=== PATIENT | male | born 1975 | race Caucasian/White ===

== ENCOUNTER 2017-02-11 02:47 | Emergency (ER) | payer OTHER ==
[2017-02-11] MEDS ORDERED: Aspirin Low Dose CHEW TAB* 81 MG PO ONE ×2 (03:06→03:25)
[2017-02-11 03:13] LABS: Hematocrit 42 % (42-52); Hemoglobin 14.6 g/dl (14.0-18.0); Mean Corpuscular HGB Conc 35 g/dl (31-36); Mean Corpuscular Hemoglobin 31 pg (27-31); Mean Corpuscular Volume 88 fL (80-94); Mean Platelet Volume 9 um3 (7.4-10.4); Red Blood Count 4.74 10^6/ul (4.0-5.4); Red Cell Distribution Width 13 % (10.5-15); White Blood Count 16.1 10^3/ul (3.5-10.8)
[2017-02-11 03:18] LABS: Add Diff/Slide Review? Slide Review Added; Comments Flag Yes
[2017-02-11 03:26] LABS: Albumin 4.3 g/dL (3.2-5.2); BUN/Creatinine Ratio 10.7 (8-20); Calcium 9.1 mg/dL (8.6-10.3); EGFR African American 101.4 (>60); EGFR Non-African American 78.8 (>60); Globulin 3.1 g/dL (2-4); Magnesium 1.5 mg/dL (1.9-2.7); Potassium 3.7 mmol/L (3.5-5.0); Total Bilirubin 0.8 mg/dL (0.2-1.0); Total Protein 7.4 g/dL (6.4-8.9)
[2017-02-11 03:28] LABS: Troponin I 0.01 ng/mL (<0.04)
--- NOTE | 2017-02-11 04:12 | ED ---
Della Becker Edward, scribed for Gilberto Roper MD on 02/11/17 at 0257 . Complex/Multi-Sys Presentation - HPI Summary HPI Summary: 41 y/o male presents to ED c/o sudden onset nausea, subjective fever, and SOB since 15:00 today. Pt was at work when it started. Sx not alleviated by ASA 81mg x three, taken MICROFILMER. Denies ABD pain, CP, vomiting and diarrhea. Pt states this feels the same as his previous VT. PMHx VT 3 yrs ago. SHx RCA stent. - History Of Current Complaint Chief Complaint: EDNauseaVomitDiarrh Hx Obtained From: Patient Onset/Duration: Sudden Onset, Lasting Hours - 15:00 today, Still Present Associated Signs And Symptoms: Positive: SOB, Nausea, Fever. Negative: Vomiting , Diarrhea - Allergies/Home Medications Allergies/Adverse Reactions: Allergies Allergy/AdvReac Type Severity Reaction Status Date / Time Clopidogrel [From Plavix] Allergy Mild Hives Verified 02/23/14 05:02 PMH/Surg Hx/FS Hx/Imm Hx Previously Healthy: No Endocrine/Hematology History: Reports: Hx Diabetes Cardiovascular History: Denies: Hx Congestive Heart Failure, Hx Hypertension History: Denies: Hx Renal Disease Infectious Disease History: No Infectious Disease History: Denies: Traveled Outside the [place] in Last 30 Days - Family History Known Family History: Positive: Cardiac Disease - CAD, Hypertension - Social History Occupation: Employed Full-time Lives: Alone Alcohol Use: None Hx Substance Use: No Substance Use Type: Reports: None Substance Use Comment - Amount & Last Used: 1 month ago Hx Tobacco Use: No Smoking Status (MU): Former Smoker Review of Systems Positive: Fever Eyes: Negative ENT: Negative Cardiovascular: Negative Positive: Shortness Of Breath Positive: Nausea. Negative: Vomiting, Diarrhea Genitourinary: Negative Musculoskeletal: Negative Skin: Negative Neurological: Negative Psychological: Normal All Other Systems Reviewed And Are Negative: Yes Physical Exam Triage Information Reviewed: Yes Vital Signs On Initial Exam: Initial Vitals Temp Pulse Resp BP Pulse Ox 99.4 F 110 24 141/69 98 02/11/17 02:49 02/11/17 02:49 02/11/17 02:49 02/11/17 02:49 02/11/17 02:49 Vital Signs Reviewed: Yes Appearance: Positive: Well-Appearing, No Pain Distress Skin: Positive: Warm Head/Face: Positive: Normal Head/Face Inspection Eyes: Positive: JHOANA ENT: Positive: Hearing grossly normal Neck: Positive: Supple Respiratory/Lung Sounds: Positive: Breath Sounds Present Cardiovascular: Positive: RRR Abdomen Description: Positive: Nontender, Soft Bowel Sounds: Positive: Present Musculoskeletal: Positive: Strength/ROM Intact Neurological: Positive: Alert, Oriented to Person Place, Time Psychiatric: Positive: Affect/Mood Appropriate Diagnostics - Vital Signs Vital Signs Temp Pulse Resp BP Pulse Ox 02/11/17 02:49 99.4 F 110 24 141/69 98 - Laboratory Result Diagrams: 02/11/17 03:05 02/11/17 03:05 Lab Statement: Any lab studies that have been ordered have been reviewed, and results considered in the medical decision making process. - EKG 1 EKG Interpretation: 02:55 - Sinus Tachycardia @ 107 bpm Re-Evaluation - Re-Evaluation First Eval Change: Improved Complex Multi-Symp Course/Dx Assessment/Plan: 41 y/o male presents to ED c/o sudden onset nausea, subjective fever, and SOB since 15:00 today. Pt was at work when it started. Denies ABD pain, CP, vomiting and diarrhea. Pt states this feels the same as his previous VT. PMHx VT 3 yrs ago. SHx RCA stent. EKG @ 02:55 - Sinus Tachycardia @ 107 bpm. CXR negative. - Diagnoses Provider Diagnoses: Vomiting Discharge - Discharge Plan Condition: Stable Disposition: HOME Patient Education Materials: Acute Nausea and Vomiting (ED) Referrals: Shubham Yee MD [Primary Care Provider] - 3 Days (Please f/u in 2-3 days) The documentation as recorded by the Della law Edward accurately reflects the service I personally performed and the decisions made by , Gilberto Roper MD.
[2017-02-11 07:31] VITALS: BP 136/71
--- NOTE | 2017-02-11 11:14 | RAD ---
Indication: Chest pain. 2 views of the chest including dual energy PA views demonstrates no mediastinal shift. Heart is of normal size and configuration. Lung alanis are clear. IMPRESSION: No active cardiopulmonary disease is noted.
== END 2017-02-11 07:30 | disposition home or self-care (01) ==
LOC: ED 02:47
DX: R06.02 Shortness of breath (principal); R11.2 Nausea with vomiting, unspecified; Z87.891 Personal history of nicotine dependence
CPT/HCPCS: 36415; 71020; 80053; 82550; 83605; 83735; 84484; 85025; 93005; 99282; A9270-GY

== ENCOUNTER 2017-02-11 17:13 | Emergency (ER) | payer OTHER ==
[2017-02-11 17:20] VITALS: BP 122/66
--- NOTE | 2017-02-11 17:35 | UC ---
Throat Pain/Nasal Luis Antonio HPI - HPI Summary HPI Summary: 41 Y/O male who presents with C/O sore throat x 1 day. Toda/y with fever of 101 at home. C/O nausea without vomiting. Tonsils with erythema, no exudate present. Cervical lympadenopathy present. - History of Current Complaint Chief Complaint: UCRespiratory Stated Complaint: SORE THROAT Time Seen by Provider: 02/11/17 17:25 Hx Obtained From: Patient Onset/Duration: Sudden Onset Severity: Moderate Pain Intensity: 7 Pain Scale Used: 0-10 Numeric Associated Signs & Symptoms: Positive: Negative - Epiglottits Risk Factors Epiglottis Risk Factors: Negative - Allergies/Home Medications Allergies/Adverse Reactions: Allergies Allergy/AdvReac Type Severity Reaction Status Date / Time Clopidogrel [From Plavix] Allergy Mild Hives Verified 02/23/14 05:02 Home Medications: Home Medications Insulin Detemir [Levemir Flextouch] 18 unit SC 02/11/17 [History] PMH/Surg Hx/FS Hx/Imm Hx Previously Healthy: No - Previous KS, Type 1 diabetes Endocrine History: Diabetes Cardiovascular History: Cardiac Disease, Hypertension, Myocardial Infarction - Surgical History Surgical History: Yes Surgery Procedure, Year, and Place: rca stent - Family History Known Family History: Positive: Cardiac Disease - CAD, Hypertension - Social History Alcohol Use: None Substance Use Type: None Substance Use Comment - Amount & Last Used: 1 month ago Smoking Status (MU): Former Smoker Review of Systems Constitutional: Fever, Chills Skin: Negative Eyes: Negative ENT: Sore Throat Respiratory: Negative Cardiovascular: Negative Gastrointestinal: Nausea Genitourinary: Negative Motor: Negative Neurovascular: Negative Musculoskeletal: Negative Neurological: Negative Psychological: Negative All Other Systems Reviewed And Are Negative: Yes Physical Exam Triage Information Reviewed: Yes Appearance: Well-Appearing Vital Signs: Initial Vital Signs Temp 98.8 F 02/11/17 17:15 Pulse 99 02/11/17 17:15 Resp 18 02/11/17 17:15 BP 122/66 02/11/17 17:15 Pulse Ox 97 02/11/17 17:15 Vital Signs Reviewed: Yes Eye Exam: Normal Eyes: Positive: Conjunctiva Clear ENT Exam: Other ENT: Positive: Pharyngeal erythema, Tonsillar swelling Neck exam: Other Neck: Positive: Enlarged Nodes @ - Cervical lymph nodes Respiratory Exam: Normal Respiratory: Positive: Normal breath sounds Cardiovascular Exam: Normal Cardiovascular: Positive: RRR Abdominal Exam: Normal Abdomen Description: Positive: Nontender Bowel Sounds: Positive: Present Musculoskeletal Exam: Normal Musculoskeletal: Positive: ROM Intact Neurological Exam: Normal Neurological: Positive: Alert Psychological Exam: Normal Skin Exam: Normal Throat Pain/Nasal Course/Dx - Differential Dx/Diagnosis Differential Diagnosis/HQI/PQRI: Pharyngitis, Tonsillitis Provider Diagnoses: Tonsillitis Discharge - Discharge Plan Condition: Stable Disposition: HOME Patient Education Materials: Tonsillitis (ED) Additional Instructions: Treat pain with Tylenol or Ibuprofen - take as directed. Follow up with primary medical provider or return to urgent care if you experience difficulty swallowing fluids or if symptoms do not improve over the next several days.
== END 2017-02-11 18:00 | disposition home or self-care (01) ==
LOC: UCEAST 17:13
DX: J03.90 Acute tonsillitis, unspecified (principal); I25.2 Old myocardial infarction; E10.9 Type 1 diabetes mellitus without complications; I10 Essential (primary) hypertension; Z87.891 Personal history of nicotine dependence; Z98.61 Coronary angioplasty status
CPT/HCPCS: 87651; 99211; G0463